=== PATIENT | male | born 1970 | race Hispanic/Latino ===

== ENCOUNTER → 2022-11-09 | Outpatient (CLI) | payer OTHER ==
[~2022-11-09] MED LIST: GADOTERATE MEGLUMINE 10 MMOL/20 ML VIAL IV ONE
== END | disposition home or self-care (01) ==
LOC: RAH 10:38
PROVIDERS: ATTEND Internal Medicine
DX: G20 Parkinson's disease (principal); M54.16 Radiculopathy, lumbar region; M54.12 Radiculopathy, cervical region; M48.02 Spinal stenosis, cervical region; R26.81 Unsteadiness on feet; R29.898 Other symptoms and signs involving the musculoskeletal system
CPT/HCPCS: 70553; 72040; 72100; A9575

== ENCOUNTER → 2022-11-16 | Outpatient (CLI) | payer OTHER | END | disposition home or self-care (01) | LOC: RAH 07:39 | PROVIDERS: ATTEND Internal Medicine | DX: R29.898 Other symptoms and signs involving the musculoskeletal system (principal); G95.9 Disease of spinal cord, unspecified; M54.16 Radiculopathy, lumbar region; R26.81 Unsteadiness on feet | CPT/HCPCS: 72148 ==